=== PATIENT | female | born 1955 | race Caucasian/White ===

== ENCOUNTER 2019-03-14 11:30 | Day surgery (SDC) | payer OTHER ==
[~2019-03-14 11:30] MED LIST: Buffered Lidocaine 1% SYRIN* 1 ML/SYRINGE INTRADERM ONE; Lactated Ringers 1000 ML Bag* 1,000 ML IV SCH
[2019-03-14] MEDS ORDERED: Buffered Lidocaine 1% SYRIN* 1 ML/SYRINGE INTRADERM ONE (11:56)
[2019-03-14] MEDS ORDERED: ceFAZolin 2 GM in NS PREMIX(*) 2 GM/100 ML BAG IVPB ONE (11:56)
[2019-03-14] MEDS ORDERED: fentaNYL* 50 MCG/ML 2 ML VIAL (100 MCG VIAL) ONE (14:08)
[2019-03-14] MEDS ORDERED: Midazolam* 1 MG/ML 5 ML VIAL (5 MG) ONE (14:08)
[2019-03-14] MEDS ORDERED: Lidocain 1% EPI 1:100,000 * 30 ML MDV ONE (14:30)
[2019-03-14] MEDS ORDERED: Bupivacaine 0.25% SDV PF* 10 ML VIAL INJ ONE (14:30)
[2019-03-14] MEDS ORDERED: Mineral Oil Sterile, TOPICAL* 25 ML BTL ONE (14:30)
[2019-03-14] MEDS ORDERED: Propofol* 10 MG/ML 20 ML BTL ONE (14:50)
[2019-03-14] MEDS ORDERED: Naloxone* 0.4 MG/ML 1 ML VIAL IV PRN (15:02)
[2019-03-14 16:23] VITALS: BP 148/94
== END 2019-03-14 16:33 | disposition home or self-care (01) ==
LOC: OR 11:30
PROVIDERS: ATTEND Plastic Surgery
DX: D03.4 Melanoma in situ of scalp and neck (principal); I10 Essential (primary) hypertension; E78.5 Hyperlipidemia, unspecified; Z87.891 Personal history of nicotine dependence; K21.9 Gastro-esophageal reflux disease without esophagitis; K44.9 Diaphragmatic hernia without obstruction or gangrene
CPT/HCPCS: 88305; A9270-GY; J0690; J2250; J2704; J3010; J3490

== ENCOUNTER 2019-09-08 11:10 | Emergency (ER) | payer OTHER ==
--- OUTSIDE RECORDS SUMMARY | 2019-09-08 11:18 | XMS REPORT | Continuity of Care Document ---
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 [phone] Medicine Problems Active Problems Provider Date Dysphagia Yovani Jackson MD Onset: 03/17/2017 Gastro-esophageal reflux disease with esophagitis Yovani Jackson MD Onset: 2017 Esophagitis, unspecified Yovani Jackson MD Onset: 03/17/2017 Duodenitis Yovani Jackson MD Onset: 03/17/2017 Gastroduodenitis Yovani Jackson MD Onset: 03/17/2017 Diaphragmatic hernia Yovani Jackson MD Onset: 03/17/2017 Social History Type Date Description Comments Sex Unknown Tobacco Use Start: Unknown End: Former Cigarette Smoker Unknown Tobacco Use Start: Unknown End: Quit over 2 years ago Unknown Smoking Status Reviewed: 07/24/19 Quit over 2 years ago ETOH Use Rarely consumes alcohol Tobacco Use Start: Unknown End: Patient is a former smoker Recreational Drug Use Denies Drug Use Allergies, Adverse Reactions, Alerts Active Allergies Reaction Severity Comments Date Crestor 07/24/2019 Inactive Allergies NKDA 11/14/2012 Medications Active Medications SIG Qnty Indications Ordering Provider Date Lisinopril 1 po qd 90tabs Unknown 20mg Tablets Excedrin Migraine prn Unknown [phone] Tablets Multi Complete 1 by mouth Unknown Capsules every day Nexium 1 by mouth Unknown 20mg Capsules DR every day Vitamin C 1 by mouth Unknown 500mg Capsules every day Immunizations Description No Information Available Vital Signs Date Vital Result Comment 07/24/2019 11:50am BP Systolic Sitting Left Arm 138 mmHg BP Diastolic Sitting Left Arm 78 mmHg Heart Rate 77 /min Respiratory Rate 18 /min Height 65.5 inches 5'5.50" Weight 169.00 lb BMI (Body Mass Index) 27.7 kg/m2 BSA (Body Surface Area) 1.85 m2 [place] body weight in kilograms 58 kg O2 % BldC Oximetry 97 % 04/08/2018 1:08pm BP Systolic 150 mmHg BP Diastolic 90 mmHg Heart Rate 87 /min Respiratory Rate 21 /min Height 65.5 inches 5'5.50" Weight 166.00 lb BMI (Body Mass Index) 27.2 kg/m2 BSA (Body Surface Area) 1.84 m2 [place] body weight in kilograms 58 kg O2 % BldC Oximetry 95 % Ra Pain Level 0 Results Description No Information Available Procedures Date Code Description Status 07/24/2019 12650 EKG-Tracing And Report Completed 07/04/2019 58182 Echocardiogram Complete Completed 07/20/2016 07871177 Colonoscopy Completed Medical Devices Description No Information Available Encounters Type Date Location Provider Dx Diagnosis Office Visit 07/24/2019 Cardiology Office Han Delgado MD R07.2 Precordial pain 11:40a I31.3 Pericardial effusion (noninflammatory) Assessments Date Code Description Provider 07/24/2019 R07.2 Precordial pain Han Delgado MD 07/24/2019 I31.3 Pericardial effusion Han Delgado MD 07/04/2019 R94.31 Abnormal electrocardiogram [ECG] [EKG] Yoan Sloan M.D., [facility] 07/04/2019 R07.89 Other chest pain Yoan Sloan M.D., [facility] 07/04/2019 I31.3 Pericardial effusion (noninflammatory) Yoan Sloan M.D., [facility] Plan of Treatment 07/24/2019 - Han Delgado, MDR07.2 Precordial painComments:Essentially resolved musculoskeletal pains. No exertional symptoms suggestive of angina. Will hold off additional testing.I31.3 Pericardial effusionNew Orders:Echocardiogram, Ordered: 07/24/19Comments:Will reassess with echo. If stable / decreasing, will follow up PRN depending on symptoms. Pt verbalized understanding and agreement.AllFollow up:Patient will call for results of testing. Functional Status Functional Condition Comment Date Status Independent with all ADL's Active Mental Status Description No Information Available Referrals Description No Information Available
--- OUTSIDE RECORDS SUMMARY | 2019-09-08 11:18 | XMS REPORT | Continuity of Care Document ---
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 50mcg/Act Suspension Nortriptyline HCL 1 tabs at 60caps Jelani Liu, 08/16/2019 10mg bedtime, may M.D. Capsules increase to tabs next week Lisinopril 1 by mouth every Unknown 20mg Tablets day Nexium 1 by mouth every Unknown 20mg Capsules DR day Vitamin C 1 by mouth every Unknown 500mg Tablets day Multi Vitamin 1 by mouth every Unknown Tablets day Coq10 1 by mouth every Unknown 200mg Capsules day Immunizations Description No Information Available Vital Signs Date Vital Result Comment 08/16/2019 7:50am Weight 169.00 lb Height 65 inches 5'5" BMI (Body Mass Index) 28.1 kg/m2 BP Systolic 148 mmHg BP Diastolic 88 mmHg Heart Rate 88 /min O2 % BldC Oximetry 94 % Body Temperature 97.3 F Pain Level 0 Results Description No Information Available Procedures Date Code Description Status 08/16/2019 20302 Tympanometry Completed 08/16/2019 25489 Audiometry, Comprehensive Completed 11/18/2018 14870681 Mammogram Completed 06/20/2017 28407267 Colonoscopy Completed Medical Devices Description No Information Available Encounters Type Date Location Provider Dx Diagnosis Office Visit 08/16/2019 Main Office Khushi Bingham NP R42 Dizziness and 8:00a giddiness J34.3 Hypertrophy of nasal turbinates Assessments Date Code Description Provider 08/16/2019 R42 Dizziness and giddiness Khushi Bingham NP 08/16/2019 J34.3 Hypertrophy of nasal turbinates Khushi Bingham NP Plan of Treatment Future Appointment(s):09/25/2019 1:45 pm - Khushi Bingham NP at Main Office Functional Status Description No Information Available Mental Status Description No Information Available Referrals Description No Information Available
--- OUTSIDE RECORDS SUMMARY | 2019-09-08 11:18 | XMS REPORT | Continuity of Care Document ---
:1955 External Reference #:[id number] Author Name CON Gutierrez (transmitted by agent of provider Vadim Boss) Address [address] [place] [address] Care Team Providers Name Role Phone Babak Lucas MD - Care Team Information Drafting Engineer [phone] Cardiovascular Disease Mimi Aguayo PA - Physician Candy Counter Clerk Care Team Information Drafting Engineer Cruz Dove MD - Plastic and Care Team Information Drafting Engineer Reconstructive Surgery Pararescue Manager Dermatology - Dermatology Care Team Information Drafting Engineer [phone] Arcadio Myles MD - Care Team Information Drafting Engineer [phone] Gastroenterology Yoan Sloan MD - Cardiovascular Care Team Information Drafting Engineer Disease Problems Active Problems Provider Date Essential hypertension Radha Sky NP Onset: 09/23/2011 Hyperlipidemia Radha Sky NP Onset: 09/23/2011 Migraine Radha Sky NP Onset: 09/23/2011 Shoulder joint pain CON Gutierrez Onset: 11/21/2018 Neoplasm of uncertain behavior of skin CON Gutierrez Onset: 11/22/2018 Malignant melanoma CON Gutierrez Onset: 05/30/2019 Lichen simplex chronicus CON Gutierrez Onset: 06/19/2019 Social History Type Date Description Comments Sex Unknown ETOH Use Rarely consumes alcohol Recreational Drug Use Denies Drug Use Tobacco Use Start: Unknown End: Patient is a former smoker Unknown Smoking Status Reviewed: 07/18/19 Patient is a former smoker Exercise Type/Frequency Exercises sporadically Allergies, Adverse Reactions, Alerts Description No Known Drug Allergies Medications Active Medications SIG Qnty Indications Ordering Date Provider Zostavax please administer 1units Z23 Shaniqua, 08/17/2016 vaccine to pt MD Prince [id number]/0.65ML Suspension Rec Zocor one half tablet in 90tabs E78.5 Prince 10/05/2012 10mg Tablets evening MD Shaniqua Lisinopril take one tablet by 90tabs Prince 09/23/2011 20mg mouth every day MD Shaniqua Tablets History Medications Meloxicam 1 by mouth 30tabs M94.0 Prince Mcgovern, 07/06/2019 - 15mg every day with 07/18/2019 Tablets food Rosuvastatin Calcium take one tablet 30tabs E78.5 Prince Mcgovern, - by mouth at 07/18/2019 5mg Tablets bedtime Cipro 1 tab twice a 14tabs Kelsey Gold MD 03/11/2019 - 500mg Tablets day for 7 days 06/19/2019 Sulfamethoxazole/Tri 1 by mouth 20tabs N39.0 Prince Mcgovern 2018 - methoprim DS twice a day 06/19/2019 800-160mg Tablets Immunizations CPT Code Status Date Vaccine Lot # [id number] Given 07/09/2015 Influenza Virus Vaccine, Quadrivalent, Split, Im Use 6-35mo Vital Signs Date Vital Result Comment 07/18/2019 3:44pm Weight 170.00 lb BP Systolic Sitting 134 mmHg BP Diastolic Sitting 60 mmHg 07/06/2019 8:01am Weight 170.06 lb BP Systolic Sitting 126 mmHg BP Diastolic Sitting 80 mmHg Results Test Date Facility Test Result H/L Range Note Laboratory test 06/12/2019 [facility] SEE RESULT 1 , [address] [place] [address] [phone] Basic Metabolic 05/19/2019 [facility] Sodium 141 mmol/L Normal 135-[address] [place] [address] [phone] Potassium 4.4 mmol/L Normal 3.5-5.0 Chloride 106 mmol/L Normal 101-111 Co2 Carbon Dioxide 29 mmol/L Normal 22-32 Anion Gap 6 mmol/L Normal 2-11 Glucose 88 mg/dL Normal 70-100 Blood Urea Nitrogen 20 mg/dL Normal 6-24 Creatinine 0.78 mg/dL Normal 0.51-0.95 BUN/Creatinine Ratio 25.6 High 8-20 Calcium 9.6 mg/dL Normal 8.6-10.3 Egfr Non- 74.6 >60 Egfr 90.3 >60 3 CBC Auto 05/19/2019 [facility] White Blood 4.9 10^3/uL Normal 3.5-10.[address] [place] [address] [phone] Red Blood Count 5.10 10^6/uL High 3.70-4.87 Hemoglobin 15.1 g/dL Normal 12.0-16.0 Hematocrit 44 % Normal 35-47 Mean Corpuscular Volume 87 fL Normal 80-97 Mean Corpuscular Hemoglobin 30 pg Normal 27-31 Mean Corpuscular HGB Conc 34 g/dL Normal 31-36 Red Cell Distribution Width 13 % Normal 10-15 Platelet Count 213 10^3/uL Normal 150-450 Mean Platelet Volume 8.3 fL Normal 7.4-10.4 Abs Neutrophils 3.4 10^3/uL Normal 1.5-7.7 Abs Lymphocytes 0.9 10^3/uL Low 1.0-4.8 Abs Monocytes 0.4 10^3/uL Normal 0-0.8 Abs Eosinophils 0.1 10^3/uL Normal 0-0.6 Abs Basophils 0.0 10^3/uL Normal 0-0.2 Abs Nucleated RBC 0.0 10^3/uL Granulocyte % 68.9 % Lymphocyte % 19.2 % Monocyte % 8.3 % Eosinophil % 3.0 % Basophil % 0.6 % Nucleated Red Blood Cells % 0.1 Lipid Profile 05/19/2019 [facility] Triglycerides 57 mg/dL 4 (Trig/Chol/HDL) [address] [place] [address] [phone] Cholesterol 203 mg/dL 5 HDL Cholesterol 62.9 mg/dL 6 LDL Cholesterol 129 mg/dL 7 Liver Function 05/19/2019 [facility] Total Protein 6.6 g/dL Normal 6.4-8.[address] [place] [address] [phone] Albumin 4.4 g/dL Normal 3.2-5.2 Globulin 2.2 g/dL Normal 2-4 Albumin/Globulin Ratio 2.0 Normal 1-3 Total Bilirubin 0.60 mg/dL Normal 0.2-1.0 Direct Bilirubin 0.10 mg/dL Normal 0.03-0.18 Indirect Bilirubin 0.5 mg/dL Normal 0.3-1.0 Alkaline Phosphatase 71 U/L Normal 34-104 Alt 23 U/L Normal 7-52 Ast 21 U/L Normal 13-39 Laboratory test 03/14/2019 [facility] SEE RESULT [address] [place] [address] [phone] Urine Culture And 03/07/2019 [facility] Urine Culture SEE RESULT 9, [address] [place] [address] [phone] 1 [id number] 2 SEE RESULT BELOW Name: GLO JAIME Lisa : [address]: Molly Yeung CNM Acct: [id number] Unit: [id number] AGE: 63 Location: [facility] Re06/12/19 SEX: F Status: REG REF SPEC: [id number] YUNIER: 06/12/19-[address] [facility] [address]: Wilder Dawn MD REQ: [id number] RECD: 06/12/19-1300 STATUS: KAVITA CONNOR DR: Prince Mcgovern MD _ ORDERED: LEVEL 4, IMMUNO-FIRST COMMENTS: [id number] FINAL DIAGNOSIS Skin, vulva, biopsy: -- Lichen simplex chronicus. -- No evidence of HPV effect or dysplasia identified. See comment. Comment: An immunohistochemical stain for p16 (HPV surrogate marker) was performed with appropriate controls and evaluated in the interpretation of the specimen and support the above rendered diagnosis. PRE-OPERATIVE DIAGNOSIS Vulvar lesion GROSS DESCRIPTION The specimen is received in formalin labeled, Vulvar Biopsy, and consists of a 0.4 by up to 0.2 x 0.1 cm hardy white focally hairbearing ovoid nodular skin shave with a 0.1 by less than 0.1 cm dark brown patch. The specimen is inked, bisected and submitted entirely in one cassette. Signed by and Reported on: Ramírez Tran MD 1058 END OF REPORT DEPARTMENT OF PATHOLOGY, [address] [place] [address] Ramírez Tran M.D. Director [facility] # [id number] 3 Because ethnic data is not always readily available, this report includes an eGFR for both -Americans and non- Americans. The National Kidney Disease Education Program (NKDEP) does not endorse the use of the MDRD equation for patients that are not between the ages of 18 and 70, are , have extremes of body size, muscle mass, or nutritional status, or are non- or non-. According to the National Kidney Foundation, irrespective of diagnosis, the stage of the disease is based on the level of kidney function: Stage Description GFR(mL/min/1.73 m(2)) 1 Kidney damage with normal or decreased GFR 90 2 Kidney damage with mild decrease in GFR 60-89 3 Moderate decrease in GFR 30-59 4 Severe decrease in GFR 15-29 5 Kidney failure <15 (or dialysis) 4 Desirable: <150 Borderline High: 150-199 High: 200-499 Very High: >500 5 Desirable: <200 Borderline High: 200-239 High: >239 6 Low: <40 Desirable: 40-60 High: >60 7 Desirable: <100 Near Optimal: 100-129 Borderline High: 130-159 High: 160-189 Very High: >189 8 SEE RESULT BELOW Name: GLO JAIME : [address]: Cruz Dove MD Acct: [id number] Unit: [id number] AGE: 63 Location: OR Re03/14/19 SEX: F Status: DELVIS CAO SPEC: [id number] YUNIER: 03/14/19- SUBM DR: Cruz Dove MD REQ: [id number] RECD: 03/14/19 STATUS: KAVITA CONNOR DR: Melissa Mcgovern MD _ ORDERED: LEVEL 4 FINAL DIAGNOSIS Skin, inferior neck, wide excision: -- Melanoma in situ, lentigo maligna type. -- Prior biopsy site related changes. -- Deep, tip, and lateral margins of resection are clear by greater than 5 mm. PRE-OPERATIVE DIAGNOSIS Melanoma in situ right inferior neck, suture howard 12:00 superior margin GROSS DESCRIPTION The specimen is received in formalin labeled, Wide Excision Melanoma In Situ Right Inferior Neck, Suture Howard 12:00 Superior Margin, and consists of a 4.5 x 3.9 cm mottled hardy-white ovoid wrinkled hairbearing skin ellipse excised to a depth of 0.7 cm with a central 3.3 x 2.7 cm mottled hardy brown area and eccentric 1.7 by up to 1.0 cm hardy-pink focally erythematous probable scar. There is a suture attached to one long axis which designates the 12:00 superior margin. The specimen is inked as follows: 9:00 half black , 3:00 half blue and 12:00 tip green, serially sectioned from 12:00 to 6:00 and entirely submitted in cassettes A through I to include ends in cassette A. Signed by and Reported on: Ramírez Tran MD 1599 END OF REPORT DEPARTMENT OF PATHOLOGY, [address] [place] [address] Ramírez Tran M.D. Director [facility] # [id number] SEE RESULT BELOW Name: GLO JAIME : [address]: Prince Mcgovern MD Acct: [id number] Unit: [id number] AGE: 63 Location: [facility] Re03/07/19 SEX: F Status: REG REF SPEC: [id number] YUNIER: 03/07/19-[address]: Prince Mcgovern MD REQ: [id number] RECD: 03/07/19 STATUS: COMP _ SOURCE: URINE SPDESC: ORDERED: Urine Culture COMMENTS: [id number] Procedure Result Reported Site Urine Culture Final 03/09/19- 1005 ML Organism 1 ESCHERICHIA COLI [place] Count >100,000 (Many) CFU/ML 1. ESCHERICHIA COLI M.I.C. RX --------- ------ Ampicillin 4 S Cefazolin <=4 S Cefepime <=1 S Ceftriaxone <=1 S Ciprofloxacin <=0.25 S Gentamicin <=1 S Levofloxacin <=0.12 S Meropenem <=0.25 S Nitrofurantoin <=16 S Tetracycline <=1 S Pipercillin/Tazobactam <=4 S Trimethoprim/Sulfamethoxazole <=20 S Amoxicillin/Clavulanic Acid <=2 S Aztreonam <=1 S Contact the Microbiology Department for any additional antibiotic reporting. * ML - Main Lab . END OF REPORT DEPARTMENT OF PATHOLOGY, [address] [place] [address] Ramírez Tran M.D. Director [facility] # [id number] Procedures Date Code Description Status 02/17/2019 61761 Tangential Biopsy Of Skin, Single Lesion Completed 09/03/2017 61144965 Mammogram Completed 07/20/2016 74396512 Colonoscopy Completed Medical Devices Description No Information Available Encounters Type Date Location Provider Dx Diagnosis Office Visit 07/06/2019 [facility] Primary Care CON Gutirerez R07.9 Chest pain, 8:00a unspecified M94.0 Chondrocostal junction syndrome [Tietze] I31.3 Pericardial effusion (noninflammatory) F41.9 Anxiety disorder, unspecified Office Visit 06/19/2019 3:00p [facility] Primary Care CON Gutierrez Z00.01 Encounter for general adult medical exam w abnormal findings E78.5 Hyperlipidemia, unspecified Office Visit 03/07/2019 11:45a [facility] Primary Prince Mcgovern, N39.0 Urinary tract Care MD infection, site not specified Assessments Date Code Description Provider 07/18/2019 M94.0 Chondrocostal junction syndrome [Tietze] CON Gutierrez 07/18/2019 I31.3 Pericardial effusion (noninflammatory) CON Gutierrez 07/18/2019 F41.9 Anxiety disorder, unspecified CON Gutierrez 07/18/2019 R42 Dizziness and giddiness CON Gutierrez 07/18/2019 R53.1 Weakness CON Gutierrez 07/06/2019 R07.9 Chest pain, unspecified CON Gutierrez 07/06/2019 M94.0 Chondrocostal junction syndrome [Tietze] CON Gutierrez 07/06/2019 I31.3 Pericardial effusion (noninflammatory) CON Gutierrez 07/06/2019 F41.9 Anxiety disorder, unspecified CON Gutierrez 06/19/2019 Z00.01 Encounter for general adult medical CON Gutierrez examination with abnormal findings 06/19/2019 E78.5 Hyperlipidemia, unspecified CON Gutierrez 03/07/2019 N39.0 Urinary tract infection, site not specified Prince Mcgovern MD 02/17/2019 L98.9 Disorder of the skin and subcutaneous Melissa Crisostomo MD tissue, unspecified Plan of Treatment Future Appointment(s):10/16/2019 2:15 pm - CON Gutierrez at [facility] Primary Care 1:30 pm - Melissa Crisostomo MD at [facility] Qdzvrzhwmvk77/29/2019 - Mimi Aguayo PAM94.0 Chondrocostal junction syndrome [Tietze]I31.3 Pericardial effusion ( noninflammatory)F41.9 Anxiety disorder, [id number] Dizziness and jqjzrnllvU03.1 WeaknessNew Labs:TSH (Thyroid Stim Horm), Ordered: 07/18/19Lyme Screen W/ Reflex To WB, Ordered: 07/18/19 Functional Status Functional Condition Comment Date Status CONTACTS Active Mental Status Description No Information Available Referrals Refer to Reason for Referral Status Appt Date Yoan Sloan MD Created [address] [place], [place] [address] [phone]
--- OUTSIDE RECORDS SUMMARY | 2019-09-08 11:18 | XMS REPORT | Continuity of Care Document ---
:1955 External Reference #:[id number] Author Name Khushi Bingham NP (transmitted by agent of provider Helen Vasquez) Address [address] [place] [address] Care Team Providers Name Role Phone Mimi Aguayo PA - Family Medicine Care Team Information Electronics Lead [phone] Problems Description No Information Available Social History Type Date Description Comments Sex Unknown ETOH Use Rare Use Of Alcohol Tobacco Use Start: Unknown End: Unknown Patient is a former smoker Recreational Drug Use Never Used Drugs Allergies, Adverse Reactions, Alerts Description No Known Drug Allergies Medications Active Medications SIG Qnty Indications Ordering Provider Date Lisinopril 1 by mouth every Unknown 20mg [...] Information Available Procedures Date Code Description Status 11/18/2018 65834403 Mammogram Completed 06/20/2017 13689461 Colonoscopy Completed Medical Devices Description No Information Available Encounters Description No Information Available Assessments Description No Information Available Plan of Treatment No Information Available Functional Status Description No Information Available Mental Status Description No Information Available Referrals Description No Information Available
[2019-09-08 11:21] VITALS: BP 171/103
--- NOTE | 2019-09-08 12:53 | UC ---
General HPI - HPI Summary HPI Summary: 64 yo female presents with spouse c/o anxiety - getting worse. Seen by PCP on Wednesday (today is Wed). Started antidepressant, also rx alprazolam. Reviewed triage notes. Adamantly denies suicidal ideation to me. Emotions however have been challenging, reporting feels ok but quickly develops sx palpitations / cp / sob with negative thoughts / emotions / stress. No recent illness. Had R neck melanoma excised with neg margins. Has not had further imaging (margins negative). No rash. No fever / chills. - History of Current Complaint Chief Complaint: [facility] Stated Complaint: personnal Time Seen by Provider: 09/08/19 12:03 Hx Obtained From: Patient, Family/Diplomatic Courier Pain Intensity: 0 - Allergy/Home Medications Allergies/Adverse Reactions: Allergies Allergy/AdvReac Type Severity Reaction Status Date / Time No Known Allergies Allergy Verified 09/08/19 11:13 Home Medications: Home Medications ALPRAZolam TAB* [Xanax TAB*] 0.1 mg PO DAILY PRN 09/08/19 [History Confirmed ] Fluticasone NASAL SPRAY 50MCG* [Flonase NASAL SPRAY 50MCG*] 2 spray BOTH NARES DAILY 09/08/19 [History Confirmed 09/08/19] Sertraline* [Zoloft*] 25 mg PO DAILY 09/08/19 [History Confirmed 09/08/19] PMH/Surg Hx/FS Hx/Imm Hx Previously Healthy: Yes - Surgical History Surgical History: None Surgery Procedure, Year, and Place: Non Invasive Melanoma, 2018, [place]; Benign Right Breast Tumor, 1975, [place] - Family History Known Family History: Positive: Hypertension - Social History Alcohol Use: Rare Alcohol Amount: social Substance Use Type: None Smoking Status (MU): Former Smoker Amount Used/How Often: 1/2 pack aday Length of Time of Smoking/Using Tobacco: On and Off x 44 Years Have You Smoked in the Last Year: No When Did the Patient Quit Smoking/Using Tobacco: 2010 - Immunization History Most Recent Influenza Vaccination: Fall 2013 Review of Systems All Other Systems Reviewed And Are Negative: Yes Constitutional: Positive: Fatigue Skin: Positive: Negative Eyes: Positive: Negative ENT: Positive: Negative Respiratory: Positive: Other - some sob, not now Cardiovascular: Positive: Palpitations, Chest Pain - no current pain Gastrointestinal: Positive: Negative Genitourinary: Positive: Negative Motor: Positive: Negative Neurovascular: Positive: Negative Musculoskeletal: Positive: Negative Neurological: Positive: Negative Psychological: Positive: Anxious Is Patient Immunocompromised?: No Physical Exam Triage Information Reviewed: Yes Appearance: Well-Nourished - sitting up, conversing easily. looks tired but nad. Vital Signs: Initial Vital Signs Temp 99.1 F 09/08/19 11:15 Pulse 94 09/08/19 11:15 Resp 16 09/08/19 11:15 BP 171/103 09/08/19 11:15 Pulse Ox 99 09/08/19 11:15 Vital Signs Reviewed: Yes Eye Exam: Normal ENT: Positive: Normal ENT inspection, Pharynx normal Neck exam: Normal Neck: Positive: Supple, Nontender, No Lymphadenopathy Respiratory Exam: Normal Respiratory: Positive: Chest non-tender, Lungs clear, Normal breath sounds, No respiratory distress, No accessory muscle use Cardiovascular Exam: Normal Cardiovascular: Positive: RRR, Pulses Normal, Brisk Capillary Refill Abdominal Exam: Normal Abdomen Description: Positive: Nontender Musculoskeletal Exam: Normal Musculoskeletal: Positive: Strength Intact - gait steady Neurological Exam: Normal - grossly nonfocal Psychological Exam: Normal - conversing easily and appropriately Skin Exam: Normal - nondiaphoretic. no visible or reported rash Course/Dx - Course Course Of Treatment: EKG sr at 78 bpm. pr 160 qtc 428. + lvh. No old for comp. Ms. Pruett adamantly denies suicidal ideation. Reports that she just wants the anxiety to stop. I paged, Dr. Mcgovern, spoke with him via telephone. She has had an extensive w/u. However antidepressant just started this week, needs more time to maximum efficacy. Has rx alprazolam, but pt reports not working. He would like pt to go to the ED. I agree. We have limited medication / tx capabilities available here in [facility] for this situation. D/w pt and . Ms. Pruett carefully considered, she will go to the ED. Her spouse will drive. Questions as posed answered to the best of my ability. I spoke with Ilda Wall NP ([facility]). - Diagnoses Provider Diagnosis: Anxiety, Palpitation Discharge ED - Sign-Out/Discharge Documenting (check all that apply): Patient Departure All imaging exams completed and their final reports reviewed: No Studies - Discharge Plan Condition: Guarded Disposition: HOME-RECOMMEND TO ED Patient Education Materials: Heart Palpitations (ED), Anxiety (ED) Referrals: Prince Mcgovern MD [Primary Care Provider] - Additional Instructions: Please go directly to the Emergency Department. Stop and call 911 if any problems en route. - Billing Disposition and Condition Condition: GUARDED Disposition: Home-Recommend to ED
== END 2019-09-08 13:00 | disposition home health service (06) ==
LOC: UCCORT 11:10
DX: F41.9 Anxiety disorder, unspecified (principal); R53.83 Other fatigue; R00.2 Palpitations; Z87.891 Personal history of nicotine dependence
CPT/HCPCS: 93005; 99212; G0463